=== PATIENT | male | born 1955 | race African-American/Black ===

== ENCOUNTER 2017-06-29 09:30 | Inpatient (IN) | payer OTHER, MEDICAID ==
[~2017-06-29] VITALS: Ht 175.3 cm; Wt 98.4 kg
[2017-06-29] MEDS ORDERED: ASPIRIN 81MG TABLET PO STA (10:08)
[2017-06-29] MEDS ORDERED: SODIUM CHLORIDE 0.9% 1000ML BAG (SEPSIS BOLUS) IV ONE (10:15)
[2017-06-29] MEDS ORDERED: NITROGLYCERIN 0.4MG TABLET SL SL PRN (10:15)
[2017-06-29 10:34] LABS: BASOPHILS % 0.8 % (0.0-2.0); EOSINOPHILS % 1.7 % (0.0-5.0); HEMATOCRIT. 43.8 % (42.0-52.0); LYMPHOCYTES % 65.2 % (20.0-50.0); MEAN CORPUSCULAR HEMOGLOBIN 30.1 pg (28.0-32.0); MEAN CORPUSCULAR VOLUME 88.1 fL (80.0-94.0); MONOCYTES % 5.3 % (2.0-8.0); PLATELET 167 x1000/uL (130-400); RED BLOOD CELL COUNT 4.97 mill/uL (4.7-6.1); RED CELL DISTRIBUTION WIDTH 14.6 % (11.6-14.6)
[2017-06-29 10:35] LABS: PROTHROMBIN TIME 10.5 sec (9.4-11.6)
[2017-06-29 10:36] LABS: CHLORIDE 103 mEq/L (98-107)
[2017-06-29 10:37] LABS: CLARITY URINE CLEAR (CLEAR); COLOR URINE YELLOW (YELLOW); KETONES URINE NEGATIVE (NEGATIVE); LEUKOCYTE ESTERASE URINE NEGATIVE (NEGATIVE); NITRITE URINE NEGATIVE (NEGATIVE); OCCULT BLOOD URINE NEGATIVE (NEGATIVE); PROTEIN URINE NEGATIVE (NEGATIVE); SPECIFIC GRAVITY URINE 1.024 (1.005-1.030)
[2017-06-29] MEDS ORDERED: LEVOFLOXACIN 750MG PREMIX 150 ML IV ONE (12:30)
[2017-06-29] MEDS ORDERED: ACETAMINOPHEN 325MG TABLET PO PRN (14:00)
[2017-06-29] MEDS ORDERED: HYDROCODONE/ACETAMINOPHEN 5/325MG TABLET PO PRN (14:00)
[2017-06-29] MEDS ORDERED: CLONIDINE 0.1MG TABLET PO PRN (14:00)
[2017-06-29] MEDS ORDERED: ONDANSETRON HCL 4MG/2ML VIAL IV PRN (14:00)
[2017-06-29] MEDS ORDERED: HYDR-4009 PO (14:53)
[2017-06-29 15:00] VITALS: BP 137/88
[2017-06-29] MEDS ORDERED: ALPR2TAB2 PO (15:08)
[2017-06-29 16:00] VITALS: BP 146/89
[2017-06-29] MEDS: IPRATROPIUM/ALBUTEROL 0.5-3(2.5)MG/3ML NEB INH SCH ×2 (16:06→21:18)
[2017-06-29] MEDS ORDERED: DEXTROSE 50% WATER 50ML SYRINGE IV PRN (17:00)
[2017-06-29] MEDS ORDERED: ALPRAZOLAM 0.25 MG TABLET PO PRN (17:15)
[2017-06-29] MEDS: BLOOD SUGAR DIAGNOSTIC STRIP TEST SCH ×2 (17:40→21:01)
[2017-06-29] MEDS ORDERED: GUAIFENESIN/CODEINE 100-10MG/5ML UDC PO PRN (17:45)
[2017-06-29] MEDS: INSULIN LISPRO 100 UNITS/ML SUBCUT SCH ×2 (17:53→21:00)
[2017-06-29] MEDS: METHYLPREDNISOLONE SOD SUCC 125 MG/2 ML VIAL IV SCH ×2 (17:53→20:57)
[2017-06-29] MEDS: FAMOTIDINE 20MG/2ML VIAL IV SCH (18:00)
[2017-06-29 20:48] VITALS: BP 140/86
[2017-06-29] MEDS: ENOXAPARIN 30MG/0.3ML SYR SUBCUT SCH (21:00)
[2017-06-29] MEDS: BUDESONIDE 0.5MG/2ML NEB HHN SCH (21:19)
[2017-06-30 00:17] VITALS: BP 124/66
[2017-06-30] MEDS: IPRATROPIUM/ALBUTEROL 0.5-3(2.5)MG/3ML NEB INH SCH ×5 (01:16→16:50)
[2017-06-30 04:00] VITALS: BP 129/80
[2017-06-30] MEDS: FAMOTIDINE 20MG/2ML VIAL IV SCH ×2 (06:00→17:58)
[2017-06-30] MEDS: METHYLPREDNISOLONE SOD SUCC 125 MG/2 ML VIAL IV SCH ×2 (06:00→14:13)
[2017-06-30 06:16] LABS: BASOPHILS % 0.1 % (0.0-2.0); HEMATOCRIT. 41.9 % (42.0-52.0); HEMOGLOBIN. 14.4 g/dL (14.0-18.0); LYMPHOCYTES % 43.8 % (20.0-50.0); MEAN CORPUSCULAR HEMOGLOBIN 30.1 pg (28.0-32.0); MEAN CORPUSCULAR VOLUME 87.7 fL (80.0-94.0); MEAN PLATELET VOLUME 9.4 fl (7.4-10.4); MONOCYTES % 1.1 % (2.0-8.0); PLATELET 174 x1000/uL (130-400); RED BLOOD CELL COUNT 4.78 mill/uL (4.7-6.1); RED CELL DISTRIBUTION WIDTH 14.4 % (11.6-14.6)
[2017-06-30 06:35] LABS: CHLORIDE 103 mEq/L (98-107)
[2017-06-30 06:41] LABS: PHOSPHORUS 3.1 mg/dL (2.5-4.9)
[2017-06-30 06:43] LABS: HDL CHOLESTEROL 36 mg/dL (40-59); LDL CHOLESTEROL 130 mg/dL (5-100)
[2017-06-30] MEDS: BLOOD SUGAR DIAGNOSTIC STRIP TEST SCH ×3 (07:31→17:40)
[2017-06-30 08:00] VITALS: BP 137/80
[2017-06-30] MEDS: INSULIN LISPRO 100 UNITS/ML SUBCUT SCH ×3 (08:09→17:43)
[2017-06-30] MEDS ORDERED: ASPIRIN 81MG EC TABLET PO SCH (09:00)
[2017-06-30] MEDS: ENOXAPARIN 30MG/0.3ML SYR SUBCUT SCH (09:17)
[2017-06-30] MEDS: BUDESONIDE 0.5MG/2ML NEB HHN SCH (09:20)
[2017-06-30 11:00] LABS: *AMPHETAMINES SCREEN URINE NEGATIVE (NEGATIVE); *BARBITURATES SCREEN URINE NEGATIVE (NEGATIVE); *BENZODIAZEPINES SCREEN URINE NEGATIVE (NEGATIVE); *COCAINE SCREEN URINE NEGATIVE (NEGATIVE)
[2017-06-30 11:01] LABS: CANNABINOID URINE SCREEN NEGATIVE (NEGATIVE); METHADONE URINE SCREEN NEGATIVE (NEGATIVE); OPIATES URINE SCREEN NEGATIVE (NEGATIVE); PHENCYCLIDINE URINE SCREEN NEGATIVE (NEGATIVE)
[2017-06-30] MEDS ORDERED: ATOR20TA65 PO (11:01)
[2017-06-30 12:00] VITALS: BP 120/75
[2017-06-30] MEDS ORDERED: LEVOFLOXACIN 750MG PREMIX 150 ML IV SCH (13:00)
[2017-06-30 16:00] VITALS: BP 133/75
[2017-06-30 18:32] VITALS: BP 133/75
[2017-06-30] MEDS ORDERED: ATORVASTATIN CALCIUM 10MG TABLET PO SCH (21:00)
== END 2017-06-30 19:00 | disposition home or self-care (01) | DRG 193 ==
LOC: ER 09:43 → 7WST 12:40 → ENRESERV 13:20 → SUPCPDRO 13:56
PROVIDERS: ADMIT Internal Medicine; ATTEND Internal Medicine
DX: J18.9 Pneumonia, unspecified organism (principal); J96.00 Acute respiratory failure, unspecified whether with hypoxia or hypercapnia; J44.0 Chronic obstructive pulmonary disease with (acute) lower respiratory infection; E11.65 Type 2 diabetes mellitus with hyperglycemia; E78.5 Hyperlipidemia, unspecified; F41.9 Anxiety disorder, unspecified; I10 Essential (primary) hypertension; Z87.891 Personal history of nicotine dependence; Z79.899 Other long term (current) drug therapy
CPT/HCPCS: 36415; 71045; 80053; 80061; 80305; 81003; 82962; 83036; 83605; 83735; 83880; 84100; 84443; 84484; 85025; 85379; 85610; 86850; 86900; 87040; 87086; 87804; 93005; 93970; 94640; 96361; 96365; 96366; 99285; J1650; J1815; J1956; J2930; J7030; J7050; J7620; J7626

== ENCOUNTER 2019-01-20 08:49 | Emergency (ER) | payer MEDICAID ==
[~2019-01-20] VITALS: Ht 175.3 cm; Wt 95.0 kg
[~2019-01-20 08:49] MED LIST: ALPR2TAB2 PO; ATOR20TA65 PO; HYDR-4009 PO
[2019-01-20] MEDS ORDERED: ALBUTEROL (0.083%) 2.5MG/3ML NEB HHN STA (09:20)
[2019-01-20] MEDS ORDERED: IPRATROPIUM BROMIDE (0.02%) 0.5MG/2.5ML NEB HHN STA (09:20)
[2019-01-20 10:38] VITALS: BP 138/90
== END 2019-01-20 10:42 | disposition home or self-care (01) ==
LOC: ER 09:05
DX: J18.0 Bronchopneumonia, unspecified organism (principal); E11.9 Type 2 diabetes mellitus without complications; E78.00 Pure hypercholesterolemia, unspecified; Z79.899 Other long term (current) drug therapy
CPT/HCPCS: 71045; 94640; 99283; J7611; Z7610

== ENCOUNTER 2019-11-28 09:38 | Emergency (ER) | payer MEDICAID, MEDICARE ==
[~2019-11-28] VITALS: Ht 182.9 cm; Wt 96.0 kg
[2019-11-28] MEDS ORDERED: ACETAMINOPHEN WITH CODEINE 300/30MG TABLET PO STA (10:15)
[2019-11-28 11:26] LABS: BASOPHILS % 0.6 % (0.0-2.0); EOSINOPHILS % 0.2 % (0.0-5.0); HEMATOCRIT. 45.6 % (42.0-52.0); HEMOGLOBIN. 15.2 g/dL (14.0-18.0); LYMPHOCYTES % 29.7 % (20.0-50.0); MEAN CORPUSCULAR VOLUME 90.1 fL (80.0-94.0); MEAN PLATELET VOLUME 9.2 fl (7.4-10.4); MONOCYTES % 8.9 % (2.0-8.0); NEUTROPHILS % 60.6 % (40.0-76.0); PLATELET 158 x1000/uL (130-400); RED BLOOD CELL COUNT 5.06 mill/uL (4.7-6.1); RED CELL DISTRIBUTION WIDTH 14.5 % (11.6-14.6)
[2019-11-28 11:34] LABS: CHLORIDE 103 mEq/L (98-107)
[2019-11-28 11:37] LABS: CLARITY URINE CLEAR (CLEAR); COLOR URINE YELLOW (YELLOW); KETONES URINE NEGATIVE (NEGATIVE); LEUKOCYTE ESTERASE URINE 2+ (NEGATIVE); NITRITE URINE NEGATIVE (NEGATIVE); OCCULT BLOOD URINE NEGATIVE (NEGATIVE); PROTEIN URINE NEGATIVE (NEGATIVE); SPECIFIC GRAVITY URINE 1.021 (1.005-1.030); UROBILINOGEN URINE 0.2 E.U./dL (0.2-1.0)
[2019-11-28] MEDS ORDERED: CEPHALEXIN 250MG CAPSULE PO ONE (12:30)
[2019-11-28 12:41] VITALS: BP 109/68
== END 2019-11-28 12:42 | disposition home or self-care (01) ==
LOC: ER 09:54
DX: M79.10 Myalgia, unspecified site (principal); N39.0 Urinary tract infection, site not specified; E11.9 Type 2 diabetes mellitus without complications; E78.00 Pure hypercholesterolemia, unspecified; M19.90 Unspecified osteoarthritis, unspecified site
CPT/HCPCS: 36415; 71045; 80053; 81003; 85025; 87077; 87186; 93005; 99285

== ENCOUNTER 2019-11-29 13:21 | Inpatient (IN) | payer MEDICARE, MEDICAID ==
[~2019-11-29] VITALS: Ht 175.3 cm; Wt 99.8 kg
[2019-11-29] MEDS ORDERED: ACETAMINOPHEN 325MG TABLET PO ONE (13:45)
[2019-11-29] MEDS ORDERED: AZITHROMYCIN 500 MG in DEXT 5% WATER 250 ML IV STA (13:58)
[2019-11-29] MEDS ORDERED: CEFTRIAXONE 1 G PREMIX 50 ML IV ONE (14:00)
[2019-11-29 14:56] LABS: CLARITY URINE CLOUDY (CLEAR); COLOR URINE YELLOW (YELLOW); KETONES URINE NEGATIVE (NEGATIVE); LEUKOCYTE ESTERASE URINE 3+ (NEGATIVE); NITRITE URINE NEGATIVE (NEGATIVE); OCCULT BLOOD URINE 1+ (NEGATIVE); PROTEIN URINE TRACE (NEGATIVE); SPECIFIC GRAVITY URINE 1.018 (1.005-1.030)
[2019-11-29 15:15] LABS: INR 1.1; PARTIAL THROMBOPLASTIN TIME 35.6 sec (23.4-31.0); PROTHROMBIN TIME 11.5 sec (9.6-11.0)
[2019-11-29] MEDS ORDERED: ONDANSETRON HCL 4MG/2ML INJ IV ONE (15:15)
[2019-11-29 15:17] LABS: BASOPHILS % 0.3 % (0.0-2.0); HEMATOCRIT. 45.6 % (42.0-52.0); HEMOGLOBIN. 15.3 g/dL (14.0-18.0); LYMPHOCYTES % 20.8 % (20.0-50.0); MEAN CORPUSCULAR HEMOGLOBIN 30.1 pg (28.0-32.0); MEAN CORPUSCULAR VOLUME 89.5 fL (80.0-94.0); MEAN PLATELET VOLUME 9.6 fl (7.4-10.4); MONOCYTES % 9.5 % (2.0-8.0); NEUTROPHILS % 69.4 % (40.0-76.0); PLATELET 145 x1000/uL (130-400); RED CELL DISTRIBUTION WIDTH 14.5 % (11.6-14.6)
[2019-11-29 15:18] LABS: CHLORIDE 97 mEq/L (98-107)
[2019-11-29] MEDS ORDERED: NA PHOS,M-B/NA PHOS,DI-BA ENEMA 118ML PR PRN (17:00)
[2019-11-29] MEDS ORDERED: ALBUTEROL 6.7GM HFA INHALER ORI PRN (17:00)
[2019-11-29] MEDS ORDERED: HYDROCODONE/ACETAMINOPHEN 5/325MG TABLET PO PRN (17:00)
[2019-11-29] MEDS ORDERED: CLONIDINE 0.1MG TABLET PO PRN (17:00)
[2019-11-29] MEDS ORDERED: ACETAMINOPHEN 650MG/20.3ML UDC GT PRN (17:00)
[2019-11-29] MEDS ORDERED: ACETAMINOPHEN 325MG TABLET PO PRN (17:00)
[2019-11-29] MEDS ORDERED: DOCUSATE SODIUM 100MG CAPSULE PO PRN (17:00)
[2019-11-29] MEDS ORDERED: MAGNESIUM/ALUMINUM HYDROXIDE/SIMETHICONE 30ML UDC PO PRN (17:00)
[2019-11-29] MEDS ORDERED: DIPHENHYDRAMINE 50MG/ML VIAL IV PRN (17:00)
[2019-11-29] MEDS ORDERED: SODIUM CHLORIDE 0.9% 1,000 ML IV SCH (17:00)
[2019-11-29] MEDS ORDERED: BUDESONIDE 0.5MG/2ML NEB HHN SCH (17:00)
[2019-11-29] MEDS ORDERED: IPRATROPIUM/ALBUTEROL 0.5-3(2.5)MG/3ML NEB NEB PRN (17:00)
[2019-11-29] MEDS ORDERED: LORAZEPAM 0.5MG TABLET PO PRN (17:00)
[2019-11-29] MEDS ORDERED: GUAIFENESIN 200MG/10ML SUGAR FREE UDC PO PRN (17:00)
[2019-11-29] MEDS ORDERED: ONDANSETRON HCL 4MG/2ML INJ IV PRN (17:00)
[2019-11-29 17:25] LABS: BG BASE EXCESS 1.9 mmol/L (-2.0-2.0); BG CARBOXYHEMOGLOBIN 0.8 % (0.5-1.5); BG DEOXYHEMOGLOBIN 6.2 % (0.0-5.0); BG FRACTION INSPIRED OXYGEN 21; BG HCO3 ACT 25.7 mmol/L (22.0-26.0); BG METHEMOGLOBIN 0.1 % (0.0-1.5); BG OXYGEN SATURATION 93.7 % (92.0-98.5); BG OXYHEMOGLOBIN 92.9 % (94.0-97.0); BG PCO2 37.8 mmHg (35.0-45.0); BG PO2 64.5 mmHg (75.0-100.0); BG SAMPLE SITE RIGHT RADIAL; BG TOTAL HEMOGLOBIN 15.6 g/dL (12.0-18.0); BG VENT MODE ROOM AIR
[2019-11-29] MEDS ORDERED: LEVOFLOXACIN 500MG PREMIX 100 ML IV SCH (17:30)
[2019-11-29] MEDS: DEXT 5%/0.9% NACL 1,000 ML IV SCH (17:32)
[2019-11-29] MEDS: ENOXAPARIN 30MG/0.3ML SYR SUBCUT SCH (17:34)
[2019-11-29 21:41] VITALS: BP 133/85
[2019-11-29 21:46] VITALS: BP 114/81
[2019-11-29] MEDS: FAMOTIDINE 20MG TABLET PO SCH (22:23)
[2019-11-30 00:05] VITALS: BP 140/85
[2019-11-30 04:00] VITALS: BP 122/86
[2019-11-30] MEDS: ENOXAPARIN 30MG/0.3ML SYR SUBCUT SCH ×2 (05:24→18:00)
[2019-11-30] MEDS: DEXT 5%/0.9% NACL 1,000 ML IV SCH (05:51)
[2019-11-30 08:03] VITALS: BP 105/83
[2019-11-30 09:56] LABS: *AMPHETAMINES SCREEN URINE NEGATIVE (NEGATIVE); *BARBITURATES SCREEN URINE NEGATIVE (NEGATIVE); *BENZODIAZEPINES SCREEN URINE NEGATIVE (NEGATIVE); *COCAINE SCREEN URINE NEGATIVE (NEGATIVE); CANNABINOID URINE SCREEN NEGATIVE (NEGATIVE); METHADONE URINE SCREEN NEGATIVE (NEGATIVE); PHENCYCLIDINE URINE SCREEN NEGATIVE (NEGATIVE)
[2019-11-30 09:57] LABS: OPIATES URINE SCREEN PRESUMTIVE POSITIVE (NEGATIVE)
[2019-11-30] MEDS: SODIUM CHLORIDE 0.9% 1,000 ML IV SCH (16:45)
[2019-11-30] MEDS ORDERED: LEVOFLOXACIN 500MG PREMIX 100 ML IV SCH (18:00)
[2019-11-30 20:00] VITALS: BP 118/84
[2019-11-30] MEDS: FAMOTIDINE 20MG TABLET PO SCH (20:36)
[2019-11-30 20:58] LABS: BASOPHILS % 0.5 % (0.0-2.0); EOSINOPHILS % 0.6 % (0.0-5.0); HEMATOCRIT. 42.4 % (42.0-52.0); HEMOGLOBIN. 14.6 g/dL (14.0-18.0); LYMPHOCYTES % 33.3 % (20.0-50.0); MEAN CORPUSCULAR HEMOGLOBIN 30.6 pg (28.0-32.0); MEAN CORPUSCULAR VOLUME 88.9 fL (80.0-94.0); MEAN PLATELET VOLUME 9.6 fl (7.4-10.4); MONOCYTES % 8.8 % (2.0-8.0); NEUTROPHILS % 56.8 % (40.0-76.0); PLATELET 147 x1000/uL (130-400); RED BLOOD CELL COUNT 4.77 mill/uL (4.7-6.1); RED CELL DISTRIBUTION WIDTH 14.6 % (11.6-14.6)
[2019-11-30 21:11] LABS: CHLORIDE 102 mEq/L (98-107)
[2019-11-30 21:18] LABS: LDL CHOLESTEROL 103 mg/dL (5-100)
[2019-11-30 21:20] LABS: HDL CHOLESTEROL 31 mg/dL (40-59)
[2019-11-30 21:24] LABS: T4 FREE 1.13 ng/dL (0.76-1.46)
[2019-12-01 00:05] VITALS: BP 124/86
[2019-12-01] MEDS: SODIUM CHLORIDE 0.9% 1,000 ML IV SCH (02:45)
[2019-12-01 04:00] VITALS: BP 128/79
[2019-12-01] MEDS: ENOXAPARIN 30MG/0.3ML SYR SUBCUT SCH (05:17)
[2019-12-01 05:49] LABS: BASOPHILS % 0.5 % (0.0-2.0); EOSINOPHILS % 1.1 % (0.0-5.0); HEMATOCRIT. 44.1 % (42.0-52.0); LYMPHOCYTES % 42.6 % (20.0-50.0); MEAN CORPUSCULAR HEMOGLOBIN 30.4 pg (28.0-32.0); MEAN CORPUSCULAR VOLUME 89.3 fL (80.0-94.0); MEAN PLATELET VOLUME 9.3 fl (7.4-10.4); MONOCYTES % 10.3 % (2.0-8.0); NEUTROPHILS % 45.5 % (40.0-76.0); PLATELET 153 x1000/uL (130-400); RED BLOOD CELL COUNT 4.94 mill/uL (4.7-6.1); RED CELL DISTRIBUTION WIDTH 14.3 % (11.6-14.6)
[2019-12-01 07:17] LABS: CHLORIDE 103 mEq/L (98-107)
[2019-12-01 07:31] LABS: PHOSPHORUS 2.5 mg/dL (2.5-4.9)
[2019-12-01 08:00] VITALS: BP 121/78
[2019-12-01 12:00] VITALS: BP 116/81
[2019-12-01 14:19] VITALS: BP 116/81
[2019-12-01] MEDS ORDERED: LEVO500T2 MT (14:19)
== END 2019-12-01 15:01 | disposition home or self-care (01) | DRG 872 ==
LOC: ER 13:21 → 7WST 16:20 → EDBEDREQ 16:50 → EDBEDREQTM 16:50 → ENRESERV 19:15 → 8WST 12-01 11:38
PROVIDERS: ADMIT Internal Medicine; ATTEND Internal Medicine
DX: A41.9 Sepsis, unspecified organism (principal); N39.0 Urinary tract infection, site not specified; J81.1 Chronic pulmonary edema; R17 Unspecified jaundice; E87.1 Hypo-osmolality and hyponatremia; J44.1 Chronic obstructive pulmonary disease with (acute) exacerbation; E78.00 Pure hypercholesterolemia, unspecified; M19.90 Unspecified osteoarthritis, unspecified site; E11.65 Type 2 diabetes mellitus with hyperglycemia; I10 Essential (primary) hypertension; E78.5 Hyperlipidemia, unspecified; E66.9 Obesity, unspecified; N40.0 Benign prostatic hyperplasia without lower urinary tract symptoms; Z20.828 Contact with and (suspected) exposure to other viral communicable diseases; R06.03 Acute respiratory distress; Z68.32 Body mass index [BMI] 32.0-32.9, adult; Z87.891 Personal history of nicotine dependence
CPT/HCPCS: 36415; 36600; 71045; 76700; 80053; 80061; 80305; 81003; 82375; 82805; 83036; 83605; 83735; 83880; 84100; 84145; 84153; 84439; 84443; 84484; 85025; 85379; 86850; 86900; 87635; 93005; 93306; 93970; 99285; J0456; J0696; J1650; J1956; J2405; J7030; J7060; G0103

== ENCOUNTER 2020-01-16 09:28 | Emergency (ER) | payer MEDICARE, MEDICAID ==
[~2020-01-16] VITALS: Ht 170.2 cm; Wt 68.0 kg
[~2020-01-16 09:28] MED LIST changes: +LEVO500T2 MT
[2020-01-16 09:32] VITALS: BP 137/100
== END 2020-01-16 10:27 | disposition home or self-care (01) ==
LOC: ER 09:28
DX: M54.5 Low back pain (principal); Z87.828 Personal history of other (healed) physical injury and trauma
CPT/HCPCS: 99282

== ENCOUNTER 2020-02-12 07:33 | Emergency (ER) | payer MEDICARE, MEDICAID ==
[~2020-02-12] VITALS: Ht 188 cm; Wt 82.0 kg
[2020-02-12] MEDS ORDERED: BENZONATATE 100MG CAPSULE PO ONE (08:30)
[2020-02-12 09:35] VITALS: BP 122/89
== END 2020-02-12 09:43 | disposition home or self-care (01) ==
LOC: ER 07:33
DX: R05 Cough (principal); J44.9 Chronic obstructive pulmonary disease, unspecified
CPT/HCPCS: 71045; 99283

== ENCOUNTER 2021-03-21 09:32 | Emergency (ER) | payer OTHER, MEDICARE ==
[~2021-03-21] VITALS: Ht 175.3 cm; Wt 96.0 kg
[2021-03-21 09:45] VITALS: BP 132/80
[2021-03-21] MEDS ORDERED: ONDANSETRON 4MG ODT PO ONE (10:00)
[2021-03-21] MEDS ORDERED: ONDA4TAB11 PO (10:36)
[2021-03-21] MEDS ORDERED: ALBU6.7H9 INH (10:36)
== END 2021-03-21 10:56 | disposition home or self-care (01) ==
LOC: ER 09:32
DX: R11.10 Vomiting, unspecified (principal); R05.9 Cough, unspecified; E78.49 Other hyperlipidemia; Z20.822 Contact with and (suspected) exposure to COVID-19; J44.9 Chronic obstructive pulmonary disease, unspecified; Z87.440 Personal history of urinary (tract) infections; Z79.899 Other long term (current) drug therapy
CPT/HCPCS: 71045; 99284; C9803; Q0162; U0003; U0005

== ENCOUNTER 2021-03-26 09:56 | Inpatient (IN) | payer OTHER, MEDICAID ==
[~2021-03-26] VITALS: Ht 177.8 cm; Wt 91.2 kg
[~2021-03-26 09:56] MED LIST changes: +ALBU6.7H9 INH; +ONDA4TAB11 PO
[2021-03-26] MEDS ORDERED: CEFTRIAXONE 1 G PREMIX 50 ML IV ONE (10:15)
[2021-03-26] MEDS ORDERED: ACETAMINOPHEN 650MG SUPP PR STA (10:15)
[2021-03-26 10:37] LABS: BG BASE EXCESS 0.7 mmol/L (-2.0-2.0); BG CARBOXYHEMOGLOBIN 0.6 % (0.5-1.5); BG DEOXYHEMOGLOBIN 26.1 % (0.0-5.0); BG METHEMOGLOBIN 0.1 % (0.0-1.5); BG OXYGEN SATURATION 73.7 % (92.0-98.5); BG OXYHEMOGLOBIN 73.2 % (94.0-97.0); BG PCO2 35.3 mmHg (35.0-45.0); BG PH 7.451 (7.350-7.450); BG PO2 39.6 mmHg (75.0-100.0); BG SAMPLE SITE LEFT BRACHIAL; BG TOTAL HEMOGLOBIN 17.5 g/dL (12.0-18.0); BG VENT MODE MASK - NRB
[2021-03-26 11:09] LABS: BASOPHILS % 0.3 % (0.0-2.0); HEMATOCRIT. 49.8 % (42.0-52.0); HEMOGLOBIN. 16.8 g/dL (14.0-18.0); LYMPHOCYTES % 25.5 % (20.0-50.0); MEAN CORPUSCULAR HEMOGLOBIN 29.5 pg (28.0-32.0); MEAN CORPUSCULAR VOLUME 87.5 fL (80.0-94.0); MEAN PLATELET VOLUME 9.3 fl (7.4-10.4); MONOCYTES % 9.8 % (2.0-8.0); NEUTROPHILS % 64.4 % (40.0-76.0); PLATELET 162 x1000/uL (130-400); RED BLOOD CELL COUNT 5.69 mill/uL (4.7-6.1); RED CELL DISTRIBUTION WIDTH 15.1 % (11.6-14.6)
[2021-03-26 11:17] LABS: CHLORIDE 94 mEq/L (98-107)
[2021-03-26 13:04] LABS: CLARITY URINE CLOUDY (CLEAR); COLOR URINE YELLOW (YELLOW); KETONES URINE NEGATIVE (NEGATIVE); LEUKOCYTE ESTERASE URINE NEGATIVE (NEGATIVE); NITRITE URINE NEGATIVE (NEGATIVE); OCCULT BLOOD URINE 3+ (NEGATIVE); PROTEIN URINE 4+ (NEGATIVE); SPECIFIC GRAVITY URINE 1.019 (1.005-1.030); UROBILINOGEN URINE 0.2 E.U./dL (0.2-1.0)
[2021-03-26] MEDS ORDERED: LEVOFLOXACIN 250MG PREMIX 50 ML IV NR (17:30)
[2021-03-26 17:48] LABS: BG BASE EXCESS 2.7 mmol/L (-2.0-2.0); BG CARBOXYHEMOGLOBIN 0.3 % (0.5-1.5); BG DEOXYHEMOGLOBIN 6.5 % (0.0-5.0); BG HCO3 ACT 27.8 mmol/L (22.0-26.0); BG METHEMOGLOBIN 0.2 % (0.0-1.5); BG OXYGEN SATURATION 93.5 % (92.0-98.5); BG PCO2 44.1 mmHg (35.0-45.0); BG PH 7.418 (7.350-7.450); BG PO2 71.8 mmHg (75.0-100.0); BG SAMPLE SITE RIGHT RADIAL; BG TOTAL HEMOGLOBIN 17.4 g/dL (12.0-18.0); BG VENT MODE MASK - BIPAP
[2021-03-26] MEDS: METHYLPREDNISOLONE SOD SUCC 40 MG/ML VIAL IV SCH (18:18)
[2021-03-26] MEDS: ENOXAPARIN 40MG/0.4ML SYR SUBCUT SCH (18:18)
[2021-03-26] MEDS: SODIUM CHLORIDE 0.45% 1,000 ML IV SCH (19:00)
[2021-03-26] MEDS ORDERED: ACETAMINOPHEN 650MG/20.3ML UDC GT PRN (19:00)
[2021-03-26] MEDS ORDERED: DEXTROSE 50% WATER 50ML SYRINGE IV PRN (19:00)
[2021-03-26] MEDS ORDERED: ALBUTEROL (0.5%) 2.5MG/0.5ML NEB HHN SCH (19:00)
[2021-03-26] MEDS ORDERED: IPRATROPIUM/ALBUTEROL 0.5-3(2.5)MG/3ML NEB HHN SCH (19:00)
[2021-03-26] MEDS ORDERED: ENOXAPARIN 40MG/0.4ML SYR SUBCUT SCH (19:00)
[2021-03-26] MEDS ORDERED: ALBUTEROL (0.083%) 2.5MG/3ML NEB ONE (20:11)
[2021-03-26] MEDS: INSULIN LISPRO 100 UNITS/ML SUBCUT SCH (21:00)
[2021-03-26] MEDS: BLOOD SUGAR DIAGNOSTIC STRIP TEST SCH (21:12)
[2021-03-27 04:00] VITALS: BP_SYST 122; BP_SYST 98; BP_DIAS 50; BP_DIAS 96
[2021-03-27] MEDS: METHYLPREDNISOLONE SOD SUCC 40 MG/ML VIAL IV SCH ×3 (04:19→17:34)
[2021-03-27 04:30] VITALS: BP_SYST 120; BP_SYST 149; BP_DIAS 88
[2021-03-27] MEDS: BLOOD SUGAR DIAGNOSTIC STRIP TEST SCH ×4 (06:48→20:55)
[2021-03-27] MEDS: INSULIN LISPRO 100 UNITS/ML SUBCUT SCH ×4 (07:31→20:58)
[2021-03-27 08:00] VITALS: BP 122/92
[2021-03-27 10:49] LABS: BG BASE EXCESS 2.5 mmol/L (-2.0-2.0); BG CARBOXYHEMOGLOBIN 0.3 % (0.5-1.5); BG DEOXYHEMOGLOBIN 5.4 % (0.0-5.0); BG FRACTION INSPIRED OXYGEN 100; BG METHEMOGLOBIN 0.3 % (0.0-1.5); BG OXYGEN SATURATION 94.6 % (92.0-98.5); BG PCO2 41.2 mmHg (35.0-45.0); BG PH 7.434 (7.350-7.450); BG PO2 74.7 mmHg (75.0-100.0); BG SAMPLE SITE RIGHT RADIAL; BG TOTAL HEMOGLOBIN 16.8 g/dL (12.0-18.0); BG VENT MODE MASK - BIPAP
[2021-03-27] MEDS ORDERED: CEFTRIAXONE 1,000 MG in DEXTROSE 5% WATER 50 ML IV SCH (11:00)
[2021-03-27 11:59] VITALS: BP 129/87
[2021-03-27] MEDS: SODIUM CHLORIDE 0.45% 1,000 ML IV SCH (12:08)
[2021-03-27] MEDS: CEFTRIAXONE 1,000 MG in DEXTROSE 5% WATER 50 ML IV SCH (13:22)
[2021-03-27 16:00] VITALS: BP 146/90
[2021-03-27] MEDS: ALBUTEROL 6.7GM HFA INHALER INH SCH (17:34)
[2021-03-27] MEDS: ENOXAPARIN 40MG/0.4ML SYR SUBCUT SCH (17:34)
[2021-03-27 17:43] LABS: BASOPHILS % 0.2 % (0.0-2.0); HEMATOCRIT. 48.8 % (42.0-52.0); HEMOGLOBIN. 16.3 g/dL (14.0-18.0); LYMPHOCYTES % 27.8 % (20.0-50.0); MEAN CORPUSCULAR HEMOGLOBIN 29.3 pg (28.0-32.0); MEAN CORPUSCULAR VOLUME 87.7 fL (80.0-94.0); MEAN PLATELET VOLUME 9.2 fl (7.4-10.4); MONOCYTES % 6.9 % (2.0-8.0); NEUTROPHILS % 65.1 % (40.0-76.0); PLATELET 175 x1000/uL (130-400); RED BLOOD CELL COUNT 5.56 mill/uL (4.7-6.1)
[2021-03-27 18:17] LABS: CHLORIDE 97 mEq/L (98-107)
[2021-03-27 18:25] LABS: HDL CHOLESTEROL 23 mg/dL (40-59)
[2021-03-27 18:28] LABS: LDL CHOLESTEROL 87 mg/dL (5-100)
[2021-03-27 20:00] VITALS: BP 132/83
[2021-03-28] VITALS (7 sets, daily range): BP systolic 112–139; BP diastolic 79–86
[2021-03-28] MEDS: ALBUTEROL 6.7GM HFA INHALER INH SCH ×4 (00:13→17:03)
[2021-03-28] MEDS: METHYLPREDNISOLONE SOD SUCC 40 MG/ML VIAL IV SCH ×3 (01:59→17:03)
[2021-03-28] MEDS: SODIUM CHLORIDE 0.45% 1,000 ML IV SCH ×2 (04:47→21:28)
[2021-03-28] MEDS: BLOOD SUGAR DIAGNOSTIC STRIP TEST SCH ×4 (07:40→21:29)
[2021-03-28] MEDS: INSULIN LISPRO 100 UNITS/ML SUBCUT SCH ×4 (08:10→21:29)
[2021-03-28 10:13] LABS: BG BASE EXCESS 2.3 mmol/L (-2.0-2.0); BG CARBOXYHEMOGLOBIN 0.3 % (0.5-1.5); BG DEOXYHEMOGLOBIN 1.3 % (0.0-5.0); BG FRACTION INSPIRED OXYGEN 100; BG HCO3 ACT 25.4 mmol/L (22.0-26.0); BG METHEMOGLOBIN 0.2 % (0.0-1.5); BG OXYGEN SATURATION 98.7 % (92.0-98.5); BG OXYHEMOGLOBIN 98.2 % (94.0-97.0); BG PCO2 35.3 mmHg (35.0-45.0); BG PH 7.475 (7.350-7.450); BG PO2 150.4 mmHg (75.0-100.0); BG SAMPLE SITE RIGHT RADIAL; BG TOTAL HEMOGLOBIN 16.7 g/dL (12.0-18.0); BG VENT MODE MASK - BIPAP
[2021-03-28] MEDS: CEFTRIAXONE 1,000 MG in DEXTROSE 5% WATER 50 ML IV SCH (11:26)
[2021-03-28] MEDS: ENOXAPARIN 40MG/0.4ML SYR SUBCUT SCH (17:03)
[2021-03-28 17:22] LABS: BASOPHILS % 0.2 % (0.0-2.0); HEMATOCRIT. 46.7 % (42.0-52.0); HEMOGLOBIN. 15.4 g/dL (14.0-18.0); MEAN CORPUSCULAR HEMOGLOBIN 29.3 pg (28.0-32.0); MEAN CORPUSCULAR VOLUME 88.8 fL (80.0-94.0); MEAN PLATELET VOLUME 8.7 fl (7.4-10.4); NEUTROPHILS % 73.8 % (40.0-76.0); PLATELET 200 x1000/uL (130-400); RED BLOOD CELL COUNT 5.26 mill/uL (4.7-6.1); RED CELL DISTRIBUTION WIDTH 14.9 % (11.6-14.6)
[2021-03-28 17:37] LABS: CHLORIDE 99 mEq/L (98-107)
[2021-03-29] VITALS: BP 137/79
[2021-03-29] MEDS: ALBUTEROL 6.7GM HFA INHALER INH SCH ×6 (00:03→21:52)
[2021-03-29] MEDS: METHYLPREDNISOLONE SOD SUCC 40 MG/ML VIAL IV SCH ×2 (02:06→09:42)
[2021-03-29 04:00] VITALS: BP 120/83
[2021-03-29] MEDS: INSULIN LISPRO 100 UNITS/ML SUBCUT SCH ×4 (06:00→21:00)
[2021-03-29] MEDS: BLOOD SUGAR DIAGNOSTIC STRIP TEST SCH ×4 (06:00→21:00)
[2021-03-29 08:00] VITALS: BP 109/65
[2021-03-29 12:00] VITALS: BP 110/74
[2021-03-29] MEDS: CEFTRIAXONE 1,000 MG in DEXTROSE 5% WATER 50 ML IV SCH (12:23)
[2021-03-29 13:25] LABS: BG BASE EXCESS 6.4 mmol/L (-2.0-2.0); BG CARBOXYHEMOGLOBIN 0.2 % (0.5-1.5); BG DEOXYHEMOGLOBIN 9.5 % (0.0-5.0); BG FRACTION INSPIRED OXYGEN 99.8; BG HCO3 ACT 29.7 mmol/L (22.0-26.0); BG METHEMOGLOBIN 0.3 % (0.0-1.5); BG OXYGEN SATURATION 90.5 % (92.0-98.5); BG PCO2 38.1 mmHg (35.0-45.0); BG PH 7.509 (7.350-7.450); BG PO2 56.5 mmHg (75.0-100.0); BG SAMPLE SITE RIGHT BRACHIAL; BG TOTAL HEMOGLOBIN 15.7 g/dL (12.0-18.0); BG VENT MODE MASK - NRB
[2021-03-29 13:50] LABS: BASOPHILS % 0.3 % (0.0-2.0); HEMATOCRIT. 33.1 % (42.0-52.0); HEMOGLOBIN. 10.9 g/dL (14.0-18.0); LYMPHOCYTES % 13.4 % (20.0-50.0); MEAN CORPUSCULAR VOLUME 88.4 fL (80.0-94.0); MEAN PLATELET VOLUME 8.7 fl (7.4-10.4); MONOCYTES % 7.4 % (2.0-8.0); NEUTROPHILS % 78.9 % (40.0-76.0); PLATELET 161 x1000/uL (130-400); RED BLOOD CELL COUNT 3.75 mill/uL (4.7-6.1); RED CELL DISTRIBUTION WIDTH 14.7 % (11.6-14.6)
[2021-03-29] MEDS ORDERED: ACETAMINOPHEN 650MG SUPP PR PRN (14:15)
[2021-03-29] MEDS ORDERED: ACETAMINOPHEN 325MG TABLET PO PRN (14:15)
[2021-03-29] MEDS: DEXAMETHASONE 10 MG/ML VIAL IV SCH (14:55)
[2021-03-29] MEDS: FAMOTIDINE 20MG/2ML VIAL IV SCH (14:56)
[2021-03-29] MEDS: SODIUM CHLORIDE 0.45% 1,000 ML IV SCH (14:56)
[2021-03-29 16:00] VITALS: BP 128/71
[2021-03-29] MEDS: ENOXAPARIN 40MG/0.4ML SYR SUBCUT SCH (19:09)
[2021-03-29 20:00] VITALS: BP 124/77
[2021-03-29 20:29] LABS: CHLORIDE 101 mEq/L (98-107)
[2021-03-30] VITALS: BP 122/68
[2021-03-30] MEDS: ALBUTEROL 6.7GM HFA INHALER INH SCH ×2 (01:52→07:46)
[2021-03-30 04:00] VITALS: BP 128/72
[2021-03-30] MEDS: BLOOD SUGAR DIAGNOSTIC STRIP TEST SCH ×4 (05:56→21:45)
[2021-03-30] MEDS: INSULIN LISPRO 100 UNITS/ML SUBCUT SCH ×4 (05:57→21:00)
[2021-03-30 08:00] VITALS: BP 136/64
[2021-03-30] MEDS: FAMOTIDINE 20MG/2ML VIAL IV SCH (08:52)
[2021-03-30 09:22] LABS: BG BASE EXCESS 4.5 mmol/L (-2.0-2.0); BG CARBOXYHEMOGLOBIN 0.5 % (0.5-1.5); BG DEOXYHEMOGLOBIN 6.4 % (0.0-5.0); BG FRACTION INSPIRED OXYGEN 100; BG HCO3 ACT 26.3 mmol/L (22.0-26.0); BG METHEMOGLOBIN 0.2 % (0.0-1.5); BG OXYGEN SATURATION 93.6 % (92.0-98.5); BG OXYHEMOGLOBIN 92.9 % (94.0-97.0); BG PCO2 31.7 mmHg (35.0-45.0); BG PH 7.537 (7.350-7.450); BG PO2 63.2 mmHg (75.0-100.0); BG SAMPLE SITE LEFT RADIAL; BG TOTAL HEMOGLOBIN 16.4 g/dL (12.0-18.0); BG VENT MODE MASK - NRB
[2021-03-30 12:00] VITALS: BP 138/75
[2021-03-30] MEDS: CEFTRIAXONE 1,000 MG in DEXTROSE 5% WATER 50 ML IV SCH (12:11)
[2021-03-30] MEDS: DEXAMETHASONE 10 MG/ML VIAL IV SCH (15:05)
[2021-03-30 16:00] VITALS: BP 121/79
[2021-03-30] MEDS: ENOXAPARIN 40MG/0.4ML SYR SUBCUT SCH (18:09)
[2021-03-30 20:00] VITALS: BP 146/72
[2021-03-31] VITALS: BP 136/68
[2021-03-31 04:00] VITALS: BP 125/79
[2021-03-31] MEDS: ALBUTEROL 6.7GM HFA INHALER INH SCH ×4 (05:46→17:31)
[2021-03-31] MEDS: INSULIN LISPRO 100 UNITS/ML SUBCUT SCH ×4 (06:12→20:44)
[2021-03-31] MEDS: BLOOD SUGAR DIAGNOSTIC STRIP TEST SCH ×4 (06:12→20:44)
[2021-03-31 08:00] VITALS: BP 138/60
[2021-03-31] MEDS: FAMOTIDINE 20MG/2ML VIAL IV SCH (08:36)
[2021-03-31 10:46] LABS: BG BASE EXCESS 2.5 mmol/L (-2.0-2.0); BG CARBOXYHEMOGLOBIN 0.4 % (0.5-1.5); BG DEOXYHEMOGLOBIN 1.4 % (0.0-5.0); BG FRACTION INSPIRED OXYGEN 100; BG HCO3 ACT 26.1 mmol/L (22.0-26.0); BG METHEMOGLOBIN 0.4 % (0.0-1.5); BG OXYGEN SATURATION 98.6 % (92.0-98.5); BG OXYHEMOGLOBIN 97.8 % (94.0-97.0); BG PCO2 37.4 mmHg (35.0-45.0); BG PH 7.462 (7.350-7.450); BG SAMPLE SITE RIGHT RADIAL; BG TOTAL HEMOGLOBIN 17.1 g/dL (12.0-18.0); BG VENT MODE MASK - BIPAP
[2021-03-31] MEDS: CEFTRIAXONE 1,000 MG in DEXTROSE 5% WATER 50 ML IV SCH (11:36)
[2021-03-31 12:00] VITALS: BP 139/69
[2021-03-31 12:03] LABS: BASOPHILS % 0.7 % (0.0-2.0); EOSINOPHILS % 0.3 % (0.0-5.0); LYMPHOCYTES % 18.5 % (20.0-50.0); MEAN CORPUSCULAR HEMOGLOBIN 28.8 pg (28.0-32.0); MEAN CORPUSCULAR VOLUME 88.2 fL (80.0-94.0); MEAN PLATELET VOLUME 8.4 fl (7.4-10.4); MONOCYTES % 5.4 % (2.0-8.0); NEUTROPHILS % 75.1 % (40.0-76.0); PLATELET 128 x1000/uL (130-400); RED BLOOD CELL COUNT 5.32 mill/uL (4.7-6.1); RED CELL DISTRIBUTION WIDTH 14.8 % (11.6-14.6)
[2021-03-31 12:08] LABS: HEMOGLOBIN. 15.3 g/dL (14.0-18.0)
[2021-03-31 12:14] LABS: CHLORIDE 101 mEq/L (98-107)
[2021-03-31] MEDS: DEXAMETHASONE 10 MG/ML VIAL IV SCH (14:00)
[2021-03-31] MEDS ORDERED: DEXAMETHASONE 6MG TABLET PO NR (15:30)
[2021-03-31] MEDS ORDERED: NALOXONE HCL 0.4MG/ML VIAL IV PRN (16:15)
[2021-03-31] MEDS: ENOXAPARIN 30MG/0.3ML SYR SUBCUT SCH (17:31)
[2021-03-31 20:00] VITALS: BP 100/81
[2021-03-31] MEDS: HYDROCODONE/ACETAMINOPHEN 5/325MG TABLET PO PRN (20:56)
[2021-04-01] MEDS: ALBUTEROL 6.7GM HFA INHALER INH SCH ×6 (00:49→17:03)
[2021-04-01] MEDS: HYDROCODONE/ACETAMINOPHEN 5/325MG TABLET PO PRN (00:54)
[2021-04-01] MEDS: ENOXAPARIN 30MG/0.3ML SYR SUBCUT SCH ×2 (06:19→17:03)
[2021-04-01] MEDS: BLOOD SUGAR DIAGNOSTIC STRIP TEST SCH ×4 (06:32→21:48)
[2021-04-01] MEDS: INSULIN LISPRO 100 UNITS/ML SUBCUT SCH ×4 (06:32→21:00)
[2021-04-01 08:00] VITALS: BP 124/73
[2021-04-01 09:01] LABS: BG BASE EXCESS 2.3 mmol/L (-2.0-2.0); BG FRACTION INSPIRED OXYGEN 100; BG HCO3 ACT 25.5 mmol/L (22.0-26.0); BG PCO2 35.3 mmHg (35.0-45.0); BG PH 7.476 (7.350-7.450); BG PO2 101.6 mmHg (75.0-100.0); BG SAMPLE SITE RIGHT RADIAL; BG VENT MODE MASK - BIPAP
[2021-04-01] MEDS ORDERED: LIDOCAINE HCL 1% 20ML VIAL (Pyxis) INJ ONE (09:31)
[2021-04-01] MEDS: FAMOTIDINE 20MG/2ML VIAL IV SCH (09:35)
[2021-04-01 09:54] LABS: BASOPHILS % 0.1 % (0.0-2.0); EOSINOPHILS % 0.5 % (0.0-5.0); HEMATOCRIT. 46.2 % (42.0-52.0); HEMOGLOBIN. 15.4 g/dL (14.0-18.0); LYMPHOCYTES % 18.3 % (20.0-50.0); MEAN CORPUSCULAR HEMOGLOBIN 29.3 pg (28.0-32.0); MEAN CORPUSCULAR VOLUME 88.1 fL (80.0-94.0); MEAN PLATELET VOLUME 8.9 fl (7.4-10.4); MONOCYTES % 5.5 % (2.0-8.0); NEUTROPHILS % 75.6 % (40.0-76.0); PLATELET 107 x1000/uL (130-400); RED BLOOD CELL COUNT 5.24 mill/uL (4.7-6.1); RED CELL DISTRIBUTION WIDTH 15.2 % (11.6-14.6)
[2021-04-01 10:41] LABS: CHLORIDE 100 mEq/L (98-107)
[2021-04-01] MEDS: CEFTRIAXONE 1,000 MG in DEXTROSE 5% WATER 50 ML IV SCH (11:33)
[2021-04-01 12:00] VITALS: BP 127/78
[2021-04-01] MEDS: DEXAMETHASONE 10 MG/ML VIAL IV SCH (13:00)
[2021-04-01 16:00] VITALS: BP 147/78
[2021-04-01 20:00] VITALS: BP 127/85
[2021-04-02] VITALS (8 sets, daily range): BP systolic 111–164; BP diastolic 68–100
[2021-04-02] MEDS: ENOXAPARIN 30MG/0.3ML SYR SUBCUT SCH ×2 (06:39→18:00)
[2021-04-02] MEDS: INSULIN LISPRO 100 UNITS/ML SUBCUT SCH ×3 (06:40→17:00)
[2021-04-02] MEDS: BLOOD SUGAR DIAGNOSTIC STRIP TEST SCH ×3 (06:40→16:30)
[2021-04-02] MEDS: FAMOTIDINE 20MG/2ML VIAL IV SCH (08:29)
[2021-04-02] MEDS: ALBUTEROL 6.7GM HFA INHALER INH SCH (13:36)
[2021-04-02] MEDS: DEXAMETHASONE 10 MG/ML VIAL IV SCH (13:36)
[2021-04-02 14:41] LABS: BG BASE EXCESS 1.6 mmol/L (-2.0-2.0); BG CARBOXYHEMOGLOBIN 0.2 % (0.5-1.5); BG DEOXYHEMOGLOBIN 11.2 % (0.0-5.0); BG FRACTION INSPIRED OXYGEN 100; BG HCO3 ACT 24.3 mmol/L (22.0-26.0); BG METHEMOGLOBIN 0.2 % (0.0-1.5); BG OXYGEN SATURATION 88.8 % (92.0-98.5); BG OXYHEMOGLOBIN 88.4 % (94.0-97.0); BG PCO2 33.5 mmHg (35.0-45.0); BG PH 7.479 (7.350-7.450); BG PO2 53.9 mmHg (75.0-100.0); BG SAMPLE SITE LEFT RADIAL; BG TOTAL RESPIRATORY RATE 35 b/min; BG VENT MODE MASK - BIPAP
[2021-04-02] MEDS ORDERED: IPRATROPIUM/ALBUTEROL 0.5-3(2.5)MG/3ML NEB HHN SCH (18:00)
[2021-04-02 23:00] LABS: BG BASE EXCESS -1.6 mmol/L (-2.0-2.0); BG CARBOXYHEMOGLOBIN 0.5 % (0.5-1.5); BG DEOXYHEMOGLOBIN 37.5 % (0.0-5.0); BG FRACTION INSPIRED OXYGEN 100; BG HCO3 ACT 23.1 mmol/L (22.0-26.0); BG METHEMOGLOBIN 0.1 % (0.0-1.5); BG OXYGEN SATURATION 62.3 % (92.0-98.5); BG OXYHEMOGLOBIN 61.9 % (94.0-97.0); BG PO2 33.7 mmHg (75.0-100.0); BG SAMPLE SITE RIGHT RADIAL; BG TOTAL HEMOGLOBIN 16.9 g/dL (12.0-18.0); BG VENT MODE MASK - BIPAP
[2021-04-03] MEDS ORDERED: EPINEPHRINE 0.1MG/ML (1:10,000) 10ML SYR ONE (10:02)
[2021-04-03] MEDS ORDERED: CALCIUM CHLORIDE 1GM/10ML SYR IV ONE (10:02)
[2021-04-03] MEDS ORDERED: SODIUM BICARBONATE 8.4% 1 MEQ/ML 50ML SYR IV ONE (10:02)
== END 2021-04-02 23:58 | DRG 871 ==
LOC: ER 09:56 → EDBEDREQTM 11:06 → EDBEDREQ 11:06 → EDBEDREQSVC 11:06 → 7WST 12:31 → EDBEDREQ 12:37 → EDBEDREQTM 12:37 → ENRESERV 22:54 → MICUSO 04-02 16:14
PROVIDERS: ADMIT Internal Medicine; ATTEND Internal Medicine
PROC: 5A09457 Assistance with Respiratory Ventilation, 24-96 Consecutive Hours, Continuous Positive Airway Pressure (ICD-10-PCS; 2021-03-26)
PROC: 5A09457 Assistance with Respiratory Ventilation, 24-96 Consecutive Hours, Continuous Positive Airway Pressure (ICD-10-PCS; 2021-03-30)
PROC: 05HY33Z Insertion of Infusion Device into Upper Vein, Percutaneous Approach (ICD-10-PCS; 2021-04-01)
PROC: B54MZZA Ultrasonography of Right Upper Extremity Veins, Guidance (ICD-10-PCS; 2021-04-01)
PROC: 5A12012 Performance of Cardiac Output, Single, Manual (ICD-10-PCS; principal; 2021-04-02)
PROC: 0BH17EZ Insertion of Endotracheal Airway into Trachea, Via Natural or Artificial Opening (ICD-10-PCS; 2021-04-02)
PROC: 5A1935Z Respiratory Ventilation, Less than 24 Consecutive Hours (ICD-10-PCS; 2021-04-02)
DX: A41.89 Other specified sepsis (principal); U07.1 COVID-19; J12.82 Pneumonia due to coronavirus disease 2019; J96.01 Acute respiratory failure with hypoxia; R65.21 Severe sepsis with septic shock; J15.9 Unspecified bacterial pneumonia; G93.41 Metabolic encephalopathy; E44.1 Mild protein-calorie malnutrition; E87.1 Hypo-osmolality and hyponatremia; N17.9 Acute kidney failure, unspecified; N39.0 Urinary tract infection, site not specified; J44.0 Chronic obstructive pulmonary disease with (acute) lower respiratory infection; E78.00 Pure hypercholesterolemia, unspecified; E78.5 Hyperlipidemia, unspecified; E87.8 Other disorders of electrolyte and fluid balance, not elsewhere classified; R79.89 Other specified abnormal findings of blood chemistry; R77.8 Other specified abnormalities of plasma proteins; R74.01 Elevation of levels of liver transaminase levels; I46.9 Cardiac arrest, cause unspecified; I12.9 Hypertensive chronic kidney disease with stage 1 through stage 4 chronic kidney disease, or unspecified chronic kidney disease; E11.22 Type 2 diabetes mellitus with diabetic chronic kidney disease; N18.9 Chronic kidney disease, unspecified; Z79.899 Other long term (current) drug therapy; Z79.2 Long term (current) use of antibiotics; Z79.891 Long term (current) use of opiate analgesic; Z68.28 Body mass index [BMI] 28.0-28.9, adult; Z82.5 Family history of asthma and other chronic lower respiratory diseases
CPT/HCPCS: 36415; 36600; 71045; 76937; 78580; 80048; 80053; 80061; 80076; 81003; 82375; 82728; 82805; 82962; 83036; 83605; 84145; 84484; 85025; 85379; 86140; 87426; 93005; 93970; 94002; 94640; 94660; 99291; C1725; C9803; J0696; J1100; J1650; J1815; J1956; J2920; J3490; J7060; U0003; U0005; A4315